=== PATIENT | male | born 1995 | race Two or more races ===

== ENCOUNTER 2020-05-20 15:40 | Emergency (ER) | payer OTHER ==
[~2020-05-20] VITALS: Ht 177.8 cm; Wt 70.0 kg
[2020-05-20 15:42] VITALS: BP 156/98
[2020-05-20] MEDS ORDERED: LIDOCAINE HCL 1% 20ML VIAL (Pyxis) INJ INFIL ONE (16:30)
== END 2020-05-20 17:40 | disposition home or self-care (01) ==
LOC: ER 15:40
DX: S51.811A Laceration without foreign body of right forearm, initial encounter (principal); X78.0XXA Intentional self-harm by sharp glass, initial encounter; Y93.89 Activity, other specified; Y92.89 Other specified places as the place of occurrence of the external cause
CPT/HCPCS: 12002; 73090; 99283; J3490